=== PATIENT | male | born 1990 | race Caucasian/White ===

== ENCOUNTER → 2024-05-05 10:39 | Outpatient (BNVA) | payer OTHER, SELFPAY | PROVIDERS: Family Provider Family Medicine; PCP Family Medicine; Referring Provider Family Medicine; Visit Provider Specialist | DX: R20.0 Anesthesia of skin (principal); R20.2 Paresthesia of skin; G56.03 Carpal tunnel syndrome, bilateral upper limbs | CPT/HCPCS: 95911 ==

== ENCOUNTER → 2025-01-28 10:25 | Outpatient (BNVA) | payer OTHER, SELFPAY | PROVIDERS: Family Provider Family Medicine; PCP Family Medicine; Visit Provider Nurse Practitioner | DX: M17.11 Unilateral primary osteoarthritis, right knee (principal); Z98.890 Other specified postprocedural states; S83.209D Unspecified tear of unspecified meniscus, current injury, unspecified knee, subsequent encounter; Z46.89 Encounter for fitting and adjustment of other specified devices; X58.XXXD Exposure to other specified factors, subsequent encounter; G89.29 Other chronic pain | CPT/HCPCS: 73560; 73565 ==

== ENCOUNTER 2025-01-28 12:07 | Outpatient (CLI) | payer OTHER, SELFPAY | END 2025-01-28 12:08 | disposition home or self-care (01) | LOC: SPT 12:07 | PROVIDERS: Family Provider Family Medicine; PCP Family Medicine; Visit Provider Nurse Practitioner | DX: Z46.89 Encounter for fitting and adjustment of other specified devices (principal); M17.11 Unilateral primary osteoarthritis, right knee | CPT/HCPCS: L1812 ==

== ENCOUNTER → 2025-02-03 14:57 | Outpatient (BNVA) | payer OTHER, SELFPAY | PROVIDERS: Family Provider Family Medicine; PCP Family Medicine; Visit Provider Specialist | DX: G56.03 Carpal tunnel syndrome, bilateral upper limbs (principal); Z01.818 Encounter for other preprocedural examination | CPT/HCPCS: 36415; 73110; 80053; 81001; 85025; 99214 ==

== ENCOUNTER 2025-02-11 09:42 | Day surgery (SDC) | payer OTHER, SELFPAY ==
[2025-02-11] VITALS (9 sets, daily range): BP systolic 121–134; BP diastolic 67–96; PULSE 54–74; RESP 16–18; TEMP 36.4–36.8; O2SAT 92–100; BMI 29.7
[2025-02-11] MEDS: acetaminophen 1,000 MG/100 ML PIGGYBACK 400 MG IV (10:42)
--- NOTE | 2025-02-11 10:47 | ANES.PREANE2 ---
Pre-Anesthetic Assessment Height/Weight: Height 1.85 m Weight 102.058 kg Temp Pulse Resp BP Pulse Ox O2 Del Method 98.3 F 65 18 121/67 100 Room Air 02/11/25 10:24 02/11/25 10:24 02/11/25 10:24 02/11/25 10:24 02/11/25 10:24 02/11/25 10:28 Operation Date: 02/11/25 11:25 Proposed Procedures p RIGHT Carpal Tunnel Release(Right) - Pretty Valle MD Familial anesthetic complications: none Was Beta Malik taken within 24 hours: N/A Was Clonidine taken within 24 hours: N/A Last intake: Intake Last Liquid Date 02/10/25 Last Liquid Time 22:00 Last Solid Date 02/10/25 Last Solid Time 21:00 Social Tobacco and No alcohol Exam alert, oriented x 3, clear to auscultation bilaterally and regular rate & rhythm Airway Mallampati: Class II Dentition: full GI Gastroesophageal Reflux Disease Anesthetic Plan ASA status: 2 Anesthesia: General Risk of > 500 ml blood loss (7ml/kg in children): No Medications/Allergies Home Medications ?Medication ?Instructions ?Recorded ?Confirmed ?Last Taken ?Type Right knee hinged knee brace #1 ea 01/28/25 01/28/25 Unknown Rx meloxicam 7.5 mg tablet 7.5 mg PO DAILY 90 days #90 tabs 01/28/25 02/11/25 Unknown Rx omeprazole 20 mg capsule,delayed 20 mg PO DAILY 02/03/25 02/11/25 02/10/25 07:00 History release trazodone 50 mg tablet 50 mg PO DAILY 02/03/25 02/10/25 02/09/25 21:00 History Allergies Allergy/AdvReac Type Severity Reaction Status Date / Time No Known Allergies Allergy Verified 02/10/25 12:28 Current Medications Generic Name Dose Route Start Last Admin Trade Name Freq PRN Reason Stop Dose Admin Sodium Chloride 1,000 mls @ 30 mls/hr 02/11/25 10:00 02/11/25 10:41 Sodium Chloride 0.9% IV 02/12/25 09:59 30 mls/hr .Q24H ALINA Administration PFSH Anesthesia Medical History (Updated 02/05/25 @ 17:36 by JANELL Ozuna) Germania test positive Primary osteoarthritis of right knee Chronic pain of both knees Surgical History (Updated 02/05/25 @ 17:35 by HIEN Ozuna-PAT) H/O medial meniscus repair of right knee Social History Smoking and tobacco/nicotine status: never used tobacco/nicotine
--- NOTE | 2025-02-11 11:01 | W.PM.OPSUD ---
Surgery/Procedure H&P Update DATE OF PROCEDURE: February 11, 2025 DATE H&P PERFORMED: 02/03/25 H&P UPDATE INFORMATION: I have reviewed H&P completed within last 30 days, I have examined patient prior to procedure, No changes to prior documentation, H&P is in [facility] EMR on date indicated and Risks and benefits of the procedure reviewed PLANNED PROCEDURE: Operation Date: 02/11/25 11:25 Proposed Procedures p RIGHT Carpal Tunnel Release(Right) - Pretty Valle MD Related Problem List Diagnoses 1. Carpal tunnel syndrome on right:
[2025-02-11] MEDS: ceFAZolin 2,000 mg SDV 2000 MG IVP (11:27)
[2025-02-11] MEDS: BUPivacaine 0.5% INJ 30 mL XX (11:56)
--- NOTE | 2025-02-11 12:10 | PM.OP ---
Operative Report Date of procedure: February 11, 2025 Pre-op diagnosis: Right carpal tunnel syndrome Post-op diagnosis: Right carpal tunnel syndrome Post-op findings: Significant compression across the carpal canal with compression on the median nerve Procedure done: Right carpal tunnel release Implants: None Specimens removed/disposition: None Pathology: None Surgeon: Pretty Valle MD Vendor Analyst: None Anesthesia: General (Per LMA, ASA 2) Estimated blood loss (mL): 1 Tourniquet time (min): 16 (At 250 mmHg) IV fluids (mL): 500 Urine output (mL): 0 (No Simpson) Complications: None Findings: See above Condition: stable Disposition: PACU (Then return to same-day surgery for discharge to home) Brief History: This 34-year-old gentleman presented to the office with complaints consistent with bilateral carpal tunnel syndrome. Patient noted he had had it for couple of years, and complained of his fingers going numb and tingling. He had an EMG nerve conduction study documenting carpal tunnel syndrome. After discussion in the office, the patient wished to proceed with right carpal tunnel release. Procedure: The patient was brought to the operating theater. General anesthesia was administered per LMA, ASA 2, and this was well-tolerated. Following prepping and draping, the arm was exsanguinated and the tourniquet was elevated to 250 mmHg for a total tourniquet time of 16 minutes. The patient was also given Ancef 2 g preoperatively. The arm was then prepped and draped with DuraPrep in usual fashion with the arm draped free. A surgical pause was performed. At the time, the surgical pause, we confirmed the site and side of surgery. We also confirmed the patient's identity, appropriate and timely administration of preoperative antibiotics and preoperative surgical markings. An incision was then made along the thenar crease. The incision crossed the wrist joint in a curvilinear fashion. Dissection continued through skin and soft tissues using a scalpel. The palmaris longus was identified along with the transverse carpal ligament. Each of these was released carefully to avoid injury to the median nerve. We were able to dissect gently into the carpal canal which was noted to be quite tight with significant compression across the median nerve. The nerve was visualized and was an hourglass shape. The canal was subsequently palpated to assure there was no bony encroachment upon the canal. There was a quite thickened fibrous tissue within the canal, and this was opened longitudinally as well. The canal was then palpated distally and proximally to assure that my small finger was passed easily without impingement. Finding this to be so, attention was directed to closure. The wound was irrigated with ropivacaine plain. It was then closed with 3-0 nylon in an interrupted mattress fashion. Sterile dressing was then placed consisting of Dermabond, OpSite, fluffed fluffs, sterile soft roll, a volar splint, and an Edwin wrap. The tourniquet was released after 16 minutes. There were no complications. There were no specimens. The procedure was well tolerated. Plan is the patient will be discharged home. Related Problem List Diagnoses 1. Carpal tunnel syndrome on right:
--- NOTE | 2025-02-11 13:37 | ANE.PACU2 ---
Inpatient post-anesthesia follow up: Airway intact: Yes Vital signs: Temperature 97.5 F Pulse Rate 61 Respiratory Rate 16 Blood Pressure 125/91 Pulse Oximetry 97 Oxygen Delivery Me thod Room Air Oxygen Flow Rate Fraction of Inspir ed Oxygen Hydration adequate: Yes Nausea and vomiting: No Pain level: 1 Mental status: Baseline
== END 2025-02-11 13:40 | disposition home or self-care (01) ==
PROVIDERS: PCP Family Medicine; Visit Provider Specialist
PROC: (CPT 64721; principal; 2025-02-11 11:15)
DX: G56.01 Carpal tunnel syndrome, right upper limb (principal); K21.9 Gastro-esophageal reflux disease without esophagitis
CPT/HCPCS: 64721; J0131; J0690; J2250; J2704; J3010; J3490; J7030; J9999